=== PATIENT | male | born 1945 | race Caucasian/White ===

== ENCOUNTER 2017-03-07 12:13 | Emergency (ER) | payer MEDICARE ==
[2017-03-07 13:13] LABS: APPEARANCE,URINE CLOUDY; BILIRUBIN,URINE NEGATIVE (NEGATIVE); GLUCOSE, URINE 50 mg/dL (NEGATIVE); KETONES,URINE NEGATIVE (NEGATIVE); LEUKOCYTE ESTERASE,URINE NEGATIVE (NEGATIVE); NITRITE,URINE NEGATIVE (NEGATIVE); PROTEIN,URINE 100 mg/dL (NEGATIVE); URINE SPECIFIC GRAVITY 1.019; UROBILINOGEN,URINE NEGATIVE mg/dL (<2.0)
[2017-03-07 13:38] LABS: ABSOLUTE EOSINOPHILS # (AUTO) 0.1 10^3/uL (0.0-0.6); ABSOLUTE LYMPHOCYTES (AUTO) 0.9 10^3/uL (0.5-4.7); ABSOLUTE MONOCYTES (AUTO) 0.3 10^3/uL (0.1-1.4); ABSOLUTE NEUT (AUTO) 4.8 10^3/uL (1.7-8.2); BASOPHILS % (AUTO) 0.7 % (0-2); EOSINOPHILS % (AUTO) 1.6 % (0-6); HEMATOCRIT 31.9 % (37.9-51.0); HEMOGLOBIN 11.2 g/dL (13.5-17.0); HGB HCT DIFFERENCE 1.7; LYMPHOCYTES % (AUTO) 14.6 % (13-45); MEAN CORPUSCULAR HEMOGLOBIN 31.4 pg (27.0-33.4); MEAN CORPUSCULAR VOLUME 90 fl (80-97); MONOCYTES % (AUTO) 4.3 % (3-13); RED BLOOD COUNT 3.55 10^6/uL (4.35-5.55); SEGMENTED NEUTROPHILS % (AUTO) 78.8 % (42-78)
[2017-03-07 13:40] LABS: PROTHROMBIN TIME 14.1 SEC (11.4-15.4)
[2017-03-07 13:41] LABS: PARTIAL THROMBOPLASTIN TIME 44.2 SEC (23.5-35.8)
[2017-03-07 13:48] LABS: ANION GAP 10 (5-19); BLOOD UREA NITROGEN 19 mg/dL (7-20); CARBON DIOXIDE 26 mmol/L (22-30); CHLORIDE 107 mmol/L (98-107); CREATINE KINASE 108 U/L (55-170); CREATININE RESULT 1.11 mg/dL (0.52-1.25); GLUCOSE 126 mg/dL (75-110); POTASSIUM 3.9 mmol/L (3.6-5.0); SODIUM 143.4 mmol/L (137-145)
--- NOTE | 2017-03-07 14:29 | ER Document Report ---
ED General - General Chief Complaint: Urinary Problem Stated Complaint: POSSIBLE BLOOD IN URINE Time Seen by Provider: 03/07/17 12:33 TRAVEL OUTSIDE OF THE [place] IN LAST 30 DAYS: No - HPI Patient complains to provider of: Hematuria Notes: Patient coming in for approximately 4 hours of hematuria. 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 Patient also has a Molina catheter due to needing TPN then further vitamin support. Patient states over the last few days traveling to different cond[place] going up and down multiple steps this morning developed hematuria. Patient denies fever chills nausea vomiting diarrhea denies any discomfort. States over the past 2 weeks sometimes having difficulty in starting stream however denies actual dysuria. Past Medical History - Social History Smoking Status: Never Smoker Chew tobacco use (# tins/day): No Frequency of alcohol use: None Drug Abuse: None Family History: Reviewed & Not Pertinent Renal/ Medical History: Denies: Hx Peritoneal Dialysis Past Surgical History: Reports: Hx Genitourinary Surgery - Polyp Sx in abdomen Review of Systems - Review of Systems Constitutional: No symptoms reported EENT: No symptoms reported Cardiovascular: No symptoms reported Respiratory: No symptoms reported Gastrointestinal: No symptoms reported Genitourinary: Hematuria Male Genitourinary: No symptoms reported Musculoskeletal: No symptoms reported Skin: No symptoms reported Hematologic/Lymphatic: No symptoms reported Neurological/Psychological: No symptoms reported -: Yes All other systems reviewed and negative Physical Exam - Vital signs Vitals: Pulse Resp BP Pulse Ox 71 16 167/70 H 97 03/07/17 12:14 03/07/17 12:14 03/07/17 12:14 03/07/17 12:14 Interpretation: Normal - General General appearance: Appears well, Alert - HEENT Head: Normocephalic, Atraumatic Eyes: Normal Pupils: PERRL - Respiratory Respiratory status: No respiratory distress Chest status: Nontender Breath sounds: Normal Chest palpation: Normal - Cardiovascular Rhythm: Regular Heart sounds: Normal auscultation Murmur: No Notes: No signs of infection the catheter site - Abdominal Inspection: Normal Distension: No distension Bowel sounds: Normal Tenderness: Nontender Organomegaly: No organomegaly Notes: Stoma looks normal - Back Back: Normal, Nontender - Extremities General upper extremity: Normal inspection, Nontender, Normal color, Normal ROM , Normal temperature General lower extremity: Normal inspection, Nontender, Normal color, Normal ROM , Normal temperature, Normal weight bearing. No: Ignacia's sign - Neurological Neuro grossly intact: Yes Cognition: Normal Orientation: AAOx4 Suman Coma Scale Eye Opening: Spontaneous Suman Coma Scale Verbal: Oriented Suman Coma Scale Motor: Obeys Commands [place] Coma Scale Total: 15 Speech: Normal Motor strength normal: LUE, RUE, LLE, RLE Sensory: Normal - Psychological Associated symptoms: Normal affect, Normal mood - Skin Skin Temperature: Warm Skin Moisture: Dry Skin Color: Normal Course - Re-evaluation Re-evalutation: 03/07/17 14:27 Lab work shows slight decrease in platelets and elevation in the patient's PTT. Patient does receive heparin to lock his Molina catheter I did discuss this with the patient possible etiology heparin causing the patient had low platelets and hematuria this would be something that patient can follow-up with his PCP. Did discuss with the patient's home health care nurse who agrees that he she will follow-up and review lab results. Low platelet count may also be chronic except I have no laboratory values to compare with. Hemoglobin and hematocrit otherwise look to be stable at this time. Vital signs are stable. No signs of infection urine will be sent for culture. Highly encourage patient only to follow-up with PCP but also urology. 03/07/17 17:48 Per request of home health care nurse and by the approval of the patient my note and the laboratory values were faxed to home health care [facility] follow -up with PCP - Vital Signs Vital signs: Temp Pulse Resp BP Pulse Ox 97 F L 60 16 147/71 H 100 03/07/17 14:40 03/07/17 14:40 03/07/17 14:40 03/07/17 14:40 03/07/17 14:40 - Laboratory Result Diagrams: 03/07/17 13:10 03/07/17 13:10 Laboratory results interpreted by me: 03/07/17 03/07/17 03/07/17 12:20 13:10 13:10 RBC 3.55 L Hgb 11.2 L Hct 31.9 L Plt Count 131 L Seg Neutrophils % 78.8 H APTT 44.2 H Glucose Urine Protein 100 H Urine Glucose (UA) 50 H Urine Blood MODERATE H Urine Ascorbic Acid 40 H 03/07/17 13:10 RBC Hgb Hct Plt Count Seg Neutrophils % APTT Glucose 126 H Urine Protein Urine Glucose (UA) Urine Blood Urine Ascorbic Acid Discharge - Discharge Clinical Impression: Low platelets Hematuria Qualifiers: Hematuria type: unspecified type Qualified Code(s): R31.9 - Hematuria, unspecified Condition: Good Disposition: HOME, SELF-CARE Instructions: Hematuria ([facility]) Additional Instructions: At this time I do not see any critical etiology for your hematuria. Highly recommend he follow-up with your primary care physician for review of today's lab results and also follow-up with more likely a urologist if your hematuria continues. Patient to drink plenty water to stay hydrated return to the ER symptoms worsen. Referrals: MINAL JOHNSTON MD [[id number]] - Follow up as needed
[2017-03-07 14:55] VITALS: BP 147/71
== END 2017-03-07 14:40 | disposition home or self-care (01) ==
LOC: ER 12:13
DX: D69.6 Thrombocytopenia, unspecified (principal); R31.9 Hematuria, unspecified; R39.198 Other difficulties with micturition
CPT/HCPCS: 99283; 36415; 82550; 85025; 85610; 85730; 80048; 81001; J1642